=== PATIENT | male | born 2000 | race Caucasian/White ===

== ENCOUNTER 2019-01-29 13:15 | Emergency (ER) | payer BC ==
[2019-01-29] MEDS ORDERED: Adacel (T-DAP) 0.5 ML SYRINGE ONE (15:07)
== END 2019-01-29 15:00 | disposition home or self-care (01) ==
LOC: ERS 13:15
DX: L05.01 Pilonidal cyst with abscess (principal); Z23 Encounter for immunization
CPT/HCPCS: 10080; 90471; 90715

== ENCOUNTER 2019-03-04 06:47 | Outpatient (CLI) | payer BC ==
[2019-03-04 11:08] LABS: #Basophils 0.1 thou/uL (0.0-0.2); #Eosinphils 0.1 thou/uL (0.0-0.7); #Lymphocytes 2.9 thou/uL (1.20-3.40); #Monocytes 0.7 thou/uL (0.11-0.59); %Basophils 1.2 % (0.0-1.0); %Eosinophils 1.9 % (0.0-10.0); %Lymphocytes 37.1 % (28.0-48.0); %Monocytes 8.6 % (0.0-4.0); %Neutrophils 51.2 % (31.0-61.0); Hemoglobin 16.3 g/dL (14.0-18.0); Mean Corpuscular HGB CONC 34.8 g/dL (32.0-36.0); Mean Corpuscular Volume 88.9 fL (78.0-98.0); Mean Platelet Volume 6.6 fL (7.4-10.4); Platelet Count 270 thou/uL (130-400); RBC Distribution Width 11.9 % (11.5-14.5); Red Blood Cell (RBC) Count 5.27 mill/uL (4.00-5.20); White Blood Cell (WBC) Count 7.8 thou/uL (4.8-10.8)
[2019-03-04 11:37] LABS: Anion Gap 12 mmol/L (10-20); BUN (Urea Nitrogen) 13 mg/dL (8.9-20.6); Calc. Creatinine Clearance 0 mL/min (70-130); Calcium 9.5 mg/dL (7.8-10.44); Carbon Dioxide 25 mmol/L (22-29); Chloride 108 mmol/L (98-107); Estimated GFR-MDRD Greater than 90; Glucose 74 mg/dL (70-105); Potassium 4.1 mmol/L (3.5-5.1); Sodium 141 mmol/L (136-145)
== END 2019-03-04 06:48 | disposition home or self-care (01) ==
LOC: LABBT 06:47
PROVIDERS: ATTEND Surgery
DX: Z01.812 Encounter for preprocedural laboratory examination (principal); L05.91 Pilonidal cyst without abscess
CPT/HCPCS: 80048; 85025

== ENCOUNTER 2019-03-08 06:04 | Day surgery (SDC) | payer BC ==
[2019-03-04 10:45] VITALS: BMI 23.0
[2019-03-08] MEDS ORDERED: Ketorolac Tromethamine 30 MG/ML VIAL ONE ×2 (06:51→11:12)
[2019-03-08] MEDS ORDERED: Bacitracin Zinc Ointment 30 gm TUBE ONE (07:04)
[2019-03-08] MEDS ORDERED: Methylene Blue 50 MG/10 ML AMPUL ONE (07:04)
[2019-03-08] MEDS ORDERED: Bupivacaine 0.25% HCL 30 ML VIAL ONE (07:04)
[2019-03-08] MEDS ORDERED: Midazolam HCl 2 mg/2 ml Vial ONE (07:27)
[2019-03-08] MEDS ORDERED: Fentanyl 100 MCG/2 ML VIAL ONE ×2 (07:28)
[2019-03-08] MEDS ORDERED: Lidocaine 1% w/Epinephrine 1:100K 20 ML VIAL ONE (08:06)
[2019-03-08] MEDS ORDERED: Ondansetron PF 4 MG/2 ML Vial ONE (11:12)
[2019-03-08] MEDS ORDERED: Rocuronium Bromide 10 MG/ML (10ML VIAL) ONE (11:12)
[2019-03-08] MEDS ORDERED: Glycopyrrolate 0.2 MG/ML 5 ML SYRINGE ONE (11:12)
[2019-03-08] MEDS ORDERED: Dexamethasone 20 MG/5 ML VIAL ONE (11:12)
[2019-03-08] MEDS ORDERED: PROPOFOL 200 MG/20 ML VIAL ONE (11:12)
[2019-03-08] MEDS ORDERED: Lidocaine 1% PF 5 ML VIAL ONE (11:12)
--- NOTE | 2019-03-08 14:47 | PDOC.OP ---
Operative Note - Operative Note Operative Note: PROCEDURE: Excision of pilonidal cyst. SURGEON: Sylvia Ferrari M.D. DATE OF PROCEDURE: 03/08/2019 PREOPERATIVE DIAGNOSIS: Pilonidal cyst POSTOPERATIVE DIAGNOSIS: Pilonidal cyst HISTORY: Patient with symptomatic pilonidal cyst for which excision was recommended. Currently without any infectious symptoms. DESCRIPTION OF PROCEDURE: After informed consent was obtained and appropriate preoperative antibiotics administered, the patient was taken to the operating room and placed in supine position and general anesthesia was administered. The patient was then placed in the prone jackknife position and prepped and draped in a standard sterile fashion with appropriate padding and support of the extremities. Methylene blue was infused through the pilonidal sinuses using an Angiocath and an elliptical incision made incorporating the sinuses and the underlying cysts. The patient appeared to have 2 main cystic cavities, one inferiorly and one superiorly which tunneled under the skin for some distance and was packed with hair. Dissection was carried down around the cysts, excising them completely to the level of the presacral fascia. Subcutaneous and deep flaps were raised and the wound was closed in two layers in an offset manner using absorbable [id number] 3-0 Vicryl sutures to the subcutaneous flap and 3-0 Vicryl sutures to the deep dermis. The skin was then closed with nylon sutures and bacitracin and nonadherent gauze and Tegaderm dressings were placed. The patient was moved back to the supine position, extubated and taken to the recovery room in good condition. ESTIMATED BLOOD LOSS: Minimal. COMPLICATIONS: There were no complications. SPECIMEN: Pilonidal cyst.
== END 2019-03-08 12:20 | disposition home or self-care (01) ==
LOC: SDC 06:04
PROVIDERS: ATTEND Surgery
PROC: 0JB90ZZ Excision of Buttock Subcutaneous Tissue and Fascia, Open Approach (ICD-10-PCS; principal; 2019-03-08)
DX: L05.01 Pilonidal cyst with abscess (principal); L72.0 Epidermal cyst; Z79.2 Long term (current) use of antibiotics; Z79.899 Other long term (current) drug therapy
CPT/HCPCS: 88304; J0131; J0690; J1100; J1885; J2001; J2250; J2405; J2704; J3010; Q9968; S0020